=== PATIENT | male | born 1950 | race Caucasian/White ===

== ENCOUNTER 2017-06-23 08:23 | Day surgery (SDC) | payer MEDICARE ==
[~2017-06-23] VITALS: Ht 185.4 cm; Wt 101.6 kg
[2017-06-23] VITALS (10 sets, daily range): BP systolic 128–153; BP diastolic 63–74; PULSE 56–68; RESP 10–18; Ht 185.4 cm; Wt 101.6 kg
[2017-06-23] MEDS ORDERED: METO-335 PO (08:45)
[2017-06-23] MEDS ORDERED: ASPI-664 PO (08:46)
[2017-06-23 09:21] LABS: BASOPHILS % 0.5 % (0.0-2.0); EOSINOPHILS # 0.1 10^3/ul (0.0-0.5); EOSINOPHILS % 1.7 % (0.0-7.0); HEMATOCRIT 42.8 % (42.0-52.0); HEMOGLOBIN 14.3 g/dl (14.0-18.0); LYMPHOCYTES # 1.2 10^3/ul (0.8-2.9); LYMPHOCYTES % 27.9 % (15.0-51.0); MEAN CORPUSCULAR HEMOGLOBIN 29.5 pg (29.0-33.0); MEAN CORPUSCULAR HGB CONC 33.4 g/dl (32.0-37.0); MEAN CORPUSCULAR VOLUME 88.4 fl (82.0-101.0); MEAN PLATELET VOLUME 9.5 fl (7.4-10.4); MONOCYTE # 0.4 10^3/ul (0.3-0.9); MONOCYTES % 9.5 % (0.0-11.0); NEUTROPHIL # 2.5 10^3/ul (1.6-7.5); NEUTROPHILS % 59.9 % (39.0-77.0); PLATELET COUNT 157 10^3/UL (140-415); RED BLOOD COUNT 4.84 10^6/ul (4.70-6.10); RED CELL DISTRIBUTION WIDTH 12.2 % (11.5-14.5); WHITE BLOOD COUNT 4.1 10^3/ul (4.8-10.8)
[2017-06-23] MEDS ORDERED: SOD CHLORIDE 0.45% 1,000 ML IV SCH (09:30)
[2017-06-23 09:40] LABS: HOLD TRANSMISSIONS 1
[2017-06-23 09:49] LABS: ALBUMIN 3.8 g/dl (3.3-4.9); ALBUMIN/GLOBULIN RATIO 1.26; TOTAL PROTEIN 6.8 g/dl (6.1-8.1)
[2017-06-23 09:50] LABS: BILIRUBIN,INDIRECT 0.5 mg/dl (0-1.1); BILIRUBIN,TOTAL 0.5 mg/dl (0.2-1.3); CALCIUM 9.4 mg/dl (8.4-10.2); CREATININE 1.04 mg/dl (0.61-1.24); POTASSIUM 4.6 mmol/L (3.5-5.1)
--- NOTE | 2017-06-23 09:51 | RADRPT ---
PROCEDURE: XR Chest. CLINICAL INDICATION: Chest pain TECHNIQUE: Single frontal view of the chest was obtained COMPARISON: None FINDINGS: The heart and mediastinum are within normal limits. The lungs are clear. There is no pleural effusion or pneumothorax. The bones and soft tissue show no acute change. IMPRESSION: No definite abnormalities are identified. RPTAT:AAJJ Physician Silviano Date Time Electronically viewed and signed by Yadiel Haney Physician on 06/23/2017 09:50 /
[2017-06-23 10:01] LABS: INR 0.96; PROTIME 12.9 Sec (11.9-14.9)
[2017-06-23 10:07] LABS: PARTIAL THROMBOPLASTIN TIME 25.6 Sec (25.0-35.0)
--- NOTE | 2017-06-23 13:22 | SIPON ---
Date/Time of Note Date/Time of Note DATE: 06/23/17 TIME: 13:20 Operative Report Preoperative Diagnosis 1.ASD Postoperative Diagnosis 2.Questional small PFO with no siginficant L>R or R-L shunt Operation/Procedure Performed 1.KORY Surgeon see signature line optometrist assistant 1.Cornelio Anesthesia: MAC Estimated blood loss: none Transfusion Required none Specimen NA Grafts/Implants none Complications none DANIELA ULLOA Jun 23, 2017 13:21
[2017-06-23] MEDS ORDERED: ONDANSETRON 4 MG INJ IV PRN (13:30)
[2017-06-23] MEDS ORDERED: OXYCODONE/ACETAMINOPHEN (5/325) TAB PO PRN ×2 (13:30)
[2017-06-23] MEDS ORDERED: FENTAnyl 50 MCG/ML VIAL IV PRN (13:30)
--- NOTE | 2017-06-24 06:04 | CARRPT ---
DATE OF PROCEDURE: 06/23/2017 PROCEDURE: Transesophageal echocardiogram. INDICATION: Possible ASD by transthoracic echo. TYPE OF ANESTHESIA: MAC with propofol under the direction of anesthesiologist at bedside. BRIEF HISTORY: Mr. Gomez is a 67-year-old male with a history of hypertension and dyslipidemia, wh o presented with lower extremity edema, underwent a 2D echo. The patient's 2D echo revealed preserv ed ejection fraction, but a questionable atrial septal defect. The patient, thereafter, had been re ferred for and presents today in order to undergo transesophageal echo to further evaluate for possi ble atrial septal defect. DISCHARGE DIAGNOSIS: No significant atrial septal defect or shunting found. DESCRIPTION OF PROCEDURE: After informed consent was obtained, the patient was brought to the [facility] cardiac catheterization lab holding room, where he was placed on continuous telemetry monitoring, blood pressure cuff cycling every 3 to 5 minutes, and continuous O2 monitoring . The patient had a bite block placed in his mouth and, under the direction of anesthesiologist, re ceived propofol in order to achieve an adequate level of anesthesia. At this time, the transesophag eal echo probe was intubated into the patient's esophagus and placed correctly. At that time, using multiplanar imaging, color flow Doppler interrogation, the patient's intracardiac structures were a dequately interrogated. The probe was then used to assess the patient's proximal descending, transv erse and ascending aorta and removed. The patient's bite block was removed. The patient was allowe d to awake from an anesthetized state. This completed the procedure. There were no noted complicat ions. FINDINGS: 1. Grossly normal left ventricular size and left ventricular systolic function. 2. Normal-appearing aortic valve apparatus with trace to mild aortic regurgitation obtained f or further evaluation. 3. Normal-appearing mitral valve apparatus with mild to moderate mitral regurgitation noted. 4. A somewhat poorly visualized pulmonic valve apparatus, no pulmonic regurgitation. 5. Normal-appearing tricuspid valve apparatus with trace to mild tricuspid regurgitation. 6. No definite finding of patent foramen ovale or other interatrial septal defect by color flow Dop pler interrogation of septum and agitated saline contrast injection x2. The patient's atrial septum did appear mobile, but not aneurysmic, with a caveat, the patient is asleep and, therefore, not abl e to perform Valsalva, which may have increased pressures and, therefore a small PFO, but once again, no significant shunting was noted. 7. Mild to moderate atherosclerotic plaquing of the patient's proximal descending and transverse an d ascending aorta. IMPRESSION: No definite findings of patent foramen ovale or other significant atrial septal defect or left to right or right to left shunting by color flow Doppler interrogation of the interatrial se ptum, as well as agitated saline contrast injection. RECOMMENDATIONS: 1. Post-procedure, the patient will be made n.p.o. x2 hours, then allowed sips of clear liquid unti l he is tolerating a full diet. 2. The patient will follow up in my office, at which time we will discuss the results of the proced ure. 3. The patient should have repeat imaging in likely 6 to 12 months to further assess moderate catie l regurgitation that was noted. Dictated By: DANIELA WHITNEY/JOANN Conf#: [id number] DID#: [id number]
--- NOTE | 2017-06-24 08:16 | RADRPT ---
Vent Rate: 60 bpm RR Interval: 0 msec VT Interval: 200 msec QRS Duration: 64 msec QT Interval: 398 msec QTC Interval: 398 msec P-R-T [place]: 16 - 24 - 45 degrees Normal sinus rhythm Normal ECG Electronically Signed By: Artie Kathleen [id number]
== END 2017-06-23 15:34 | disposition home or self-care (01) ==
LOC: SDS 08:23
PROVIDERS: ATTEND Internal Medicine
DX: Q21.2 Atrioventricular septal defect (principal); I50.30 Unspecified diastolic (congestive) heart failure; I27.20 Pulmonary hypertension, unspecified; R60.9 Edema, unspecified; Z79.82 Long term (current) use of aspirin
CPT/HCPCS: 71010; 80053; 85025; 85610; 85730; 93005; 93312; 93325